=== PATIENT | male | born 1945 | race Caucasian/White ===

== ENCOUNTER 2017-06-10 14:00 | Outpatient (RCR) | payer MEDICARE, OTHER, SELFPAY | END 2017-06-23 11:26 | LOC: PUL 14:00 | PROVIDERS: Family Provider Physician Assistant Medical; PCP Physician Assistant Medical; Visit Provider Internal Medicine Critical Care Medicine | DX: J44.9 Chronic obstructive pulmonary disease, unspecified (principal) | CPT/HCPCS: G0424 ==

== ENCOUNTER → 2018-09-30 14:32 | Outpatient (CLI) | payer MEDICARE, OTHER, SELFPAY ==
--- NOTE | 2018-10-07 16:28 | PM.PFT.1 ---
Pulmonary Function Test Referral & Results Date Patient Seen: 09/30/18 Requesting provider: Estefania Dobbins Results: The spirometry demonstrates an FVC of 2.80 L which is 71% of predicted. The FEV1 was measured at 1.61 L which is 57% of predicted. The FEV1/FVC ratio was 58 which is 78% of predicted. Following the administration of bronchodilator there was no appreciable change. Lung volumes show an SVC of 2.73 L which is 65% of predicted. The diffusing capacity was measured at 18.72 which is 63% of predicted. The maximum voluntary ventilation was reduced Interpretation: This study demonstrates moderate obstructive lung disease without evidence of benefit following bronchodilator There is also [id number] restrictive lung disease present There is also reduction in diffusing capacity suggesting disease at the capillary alveolar level Compared to PFTs performed in January 2017, current study shows improvement in FEV1 and lung volumes overall
== END ==
PROVIDERS: PCP Physician Assistant Medical; Visit Provider Internal Medicine
DX: R06.02 Shortness of breath (principal)
CPT/HCPCS: 94060; 94726; 94729

== ENCOUNTER → 2020-05-30 12:21 | Outpatient (CLI) | payer MEDICARE, OTHER, SELFPAY ==
[2020-05-30 13:12] LABS: COVID19 -Nasal RAPID Negative (Negative)
== END ==
PROVIDERS: PCP Physician Assistant Medical; Referring Provider Internal Medicine; Visit Provider Internal Medicine
DX: Z20.822 Contact with and (suspected) exposure to COVID-19 (principal)
CPT/HCPCS: 87635; C9803

== ENCOUNTER → 2020-05-31 11:05 | Outpatient (CLI) | payer MEDICARE, OTHER, SELFPAY ==
--- NOTE | 2020-06-05 11:07 | PM.PFT.1 ---
Pulmonary Function Test Referral & Results Date Patient Seen: 05/31/20 Requesting provider: Yenny Fortune Results: The spirometry demonstrates an FVC of 2.35 L which is 61% of predicted. The FEV1 was measured at 1.33 L which is 40% of predicted. The FEV1/FVC ratio was 57 which is 78% of predicted. Following the administration of bronchodilator there was no appreciable change. Lung volumes show an SVC of 2.55 L which is 61% of predicted. The diffusing capacity was measured at 17.79 which is 60% of predicted. No hemoglobin value was provided, so no correction for potential anemia could be made, if appropriate. The maximum voluntary ventilation was reduced Interpretation: This study demonstrates moderately severe obstructive lung disease based on reduction FEV1 although FEV1/FVC ratio was relatively preserved. While there is no benefit following bronchodilator of note, shape a flow volume loop also is consistent with obstructive lung disease There is a mild reduction in lung volumes well based on reduction SVC There is a significant reduction in diffusing capacity suggesting significant disease at the capillary alveolar level Compared to PFTs performed in September 2018, current study shows a slight decline in FEV1 otherwise is essentially unchanged
== END ==
PROVIDERS: PCP Physician Assistant Medical; Referring Provider Physician Assistant Medical; Visit Provider Physician Assistant Medical
DX: J44.9 Chronic obstructive pulmonary disease, unspecified (principal)
CPT/HCPCS: 94060; 94726; 94729

== ENCOUNTER 2020-08-05 12:56 | Outpatient (RCR) | payer MEDICARE, OTHER, SELFPAY ==
--- NOTE | 2020-08-05 16:37 | ST.OPIE ---
Visit Care Team Role Provider Type Yenny Fortune PA-C Family Provider Non-Staff Primary Care Provider Specialty: Medical Address: [address] [place] [address] [address], [place], [address] Email: Willie Romano MD Attending Provider Physician Referring Provider Specialty: Ear, Nose, Throat Address: [address] [place] [address] [address], [place], [address] Email: [email or web address] Speech-Language Pathology Initial Evaluation [employer] Voice Resonance Evaluation Start: 08/05/20 13:34 Freq: Status: Active Protocol: Document 08/05/20 13:34 RUY (Rec: 08/05/20 14:03 RUY [email or web address]) Voice and Resonance Assessment Session Time Visit Start Time 13:30 Visit Stop Time 14:30 Total Visit Minutes 60 Visit Information Visit Number Initial Evaluation Plan of Care Dates 08/05/20 - 11/05/20 Insurance Information Medicare Next Note Type Next Note Type Treatment Note Referral Referring Physician Dr. Willie Romano Reason for Referral Hoarse voice Setting Setting Outpatient Care Patient History General Information Pt is a 75-yr-old male whose voice has been progressively hoarse over the last 5 yrs. He complains that his voice quality worsens over duration of speech and that speaking fatigues him quickly. Consumption of cold foods and liquids soothes his throat. The pt has been followed by Dr Jose Carlos Romano, ENT, who saw the pt for basal cell biopsy at last visit and indicated plan for laryngoscopy of voice at next ENT visit. In the meantime, Dr Jose Carlos Romano referred the pt to voice therapy, for which the pt presents today. Medical hx is significant for GERD, Diabetes, hypertention, sleep apnea, COPD requiring supplemental oxygen (3-4 liters, 20-24 hrs/day), basal cell carcinoma on the right ear, and colitis. 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 The pt uses 3 different inhalers: 2 puffs of one in morning; 2 of another in afternoon; and rescue inhaler as needed. He stopped using nebulizer ~3 yrs ago because it worsened the hoarseness of his voice. The pt is followed by [facility] but could not recall the name of his doctor. Hearing Hearing Level Impaired Vision Vision Status Not Impaired Augustine Langauge Language(s) Spoken in the Home Spanish Occupational Status Occupation Status Retired; worked frequently around environmental toxins. Previous Therapy Previous Speech-Language Therapy No Oral Motor Assessment Source: [employer] ([employer]). Oral-Motor Eval Completed No Subjective Subjective The pt arrived on time accompanied by his . The couple provided case history supplemental to medical records. - Laryngeal Performance S/Z Ratio S/Z Ratio 1.0518 WNL Functional for Speech Yes Reduced Laryngeal Function Relative to No Respiration Voice Handicap Index Function Subtotal 23 (Severe) Physical Subtotal 30 (Severe) Emotional Subtotal 17 (Mod-Severe) Total Score 70 Severity Severe (61-120) CAPE-V Overall Severity 77% Severe Roughness 91% Severe Breathiness WNL Strain 70% Severe Pitch 37% Moderate Loudness 22% Mildly reduced Normal Resonance? Yes Additional Features Diplophonia,Glottal Reynoso,Pitch Instability Maximum Phonation Time MPT Norms: Women (15-25) Men (25-35) Loudness (50-60 dB); Speaking Rate: Oral Reading of Sentences (190 Words Per Minute); Oral Reading of Paragraphs (160-170 WPM); Speaking Rate in Conversation (150-250 WPM) Maximum Phonation Time 6.8 sec Maximum Phonation Time Reduced,Unstable Tone,Unstable Pitch,Unstable Loudness Maximum Phonation Time Comments Decreased vocal quality with sustained phonation Jitter/Shimmer Norms: Jitter (Less than or equal to 1.040% - Frequency) Norms: Shimmer (Less than or equal to 3.810% - Amplitude) Jitter 9.57% Severely Abnormal Shimmer 26.86% Severely Abnormal Pitch [place]lake Pitch [place] Pitch Breaks,Reduced Range, Tension,Cessation of Voicing Pitch [place] Comments Unable to measure d/t diplophonia and roughness Breath Support Breath Support At Rest Thoracic,Clavicular,Mixed Breath Support Sustained Phonation Thoracic,Clavicular,Mixed Breath Support Conversation Thoracic,Clavicular,Mixed Speaks on Room Air No Therapeutic Techniques Therapy Tactics Breath Support,Postural Adjustment,Increase Loudness Findings Findings Severe Impairment Voice/Resonance Assessment Assessment The pt presents with severe dysphonia likely secondary to COPD, years of smoking, and frequent coughing d/t pulmonary issues. Voice quality is severely rough in nature with moderate-severe strain and mildly reduced loudness. Diplophonia is frequently perceived, both in spontaneous conversation and in structured tasks. [employer] was unable to objectively measure pitch and loudness levels d/t diplophonia and vocal roughness. Given the pt's history of cancer, smoking and COPD, in addition to severity of dysphonia symptoms, videostroboscopy is highly recommended for more thorough evaluation of VF health prior to initiation of voice treatment in order to guide POC. The pt was in agreement with this recommendation. Referral will be made and a copy of this report will be provided to [facility]. Prognosis Rehabilitation Potential Fair - Recommendations Treatment Recommended Yes Treatment Frequency/Duration Likely 1x/wk for up to 12 wks, pending ENT findings Therapy Recommendations Pending videostroboscopy findings Short Term Goals 1. The pt will participate in videostroboscopy evaluation with ENT to guide POC. Additional goals to be determined pending findings. Retail Sales Manager Goals 1. The pt will produce voicing with adequate quality and endurance to communicate effectively within his functional environment. Patient/Caregiver Education Patient/Family Education Described results of evaluation,Patient Understanding
--- NOTE | 2020-12-25 14:18 | ST.OPDS ---
Visit Care Team Role Provider Type Yenny Fortune PA-C Family Provider Non-Staff Primary Care Provider Address: [address] [place] [address] [address], [place], [address] Willie Romano MD Attending Provider Physician Referring Provider Address: [address] [place] [address] [address], [place], [address] HEAD PAPER TESTER Treatment Note HEAD PAPER TESTER Treatment Note Start: 08/05/20 13:34 Freq: Status: Active Protocol: Document 12/25/20 14:15 RUY (Rec: 12/25/20 14:17 RUY [id number]) Speech Pathology Treatment Note Visit Information Plan of Care Dates 08/05/20 - 11/05/20 Insurance Information Medicare Setting Treatment Setting Outpatient Care Visit Type Note Type Discharge Summary General Information General Information Pt is a 75-yr-old male whose voice has been progressively hoarse over the last 5 yrs. He complains that his voice quality worsens over duration of speech and that speaking fatigues him quickly. Consumption of cold foods and liquids soothes his throat. The pt has been followed by Dr Jose Carlos Romano, ENT, who saw the pt for basal cell biopsy at last visit and indicated plan for laryngoscopy of voice at next ENT visit. In the meantime, Dr Jose Carlos Romano referred the pt to voice therapy, for which the pt presents today. Medical hx is significant for GERD, Diabetes, hypertention, sleep apnea, COPD requiring supplemental oxygen (3-4 liters, 20-24 hrs/day), basal cell carcinoma on the right ear, and colitis. 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 The pt uses 3 different inhalers: 2 puffs of one in morning; 2 of another in afternoon; and rescue inhaler as needed. He stopped using nebulizer ~3 yrs ago because it worsened the hoarseness of his voice. The pt is followed by [facility] but could not recall the name of his doctor. Subjective Observations/Patient Presentation The pt was last seen for initial evaluation in July 2020, at which time videostroboscopy was recommended prior to initiation of voice therapy. The pt has not scheduled further appts and is now outside of POC dates. He will be discharged from skilled intervention at this time. New MD orders are required to resume therapy. Chief Complaint(s) Voice
== END 2021-03-11 09:42 ==
LOC: SP 12:56
PROVIDERS: Family Provider Physician Assistant Medical; PCP Physician Assistant Medical; Referring Provider Otolaryngology; Visit Provider Otolaryngology
DX: R49.0 Dysphonia (principal)
CPT/HCPCS: 92520; 92521

== ENCOUNTER → 2022-11-27 16:23 | Outpatient (CLI) | payer MEDICARE, OTHER, SELFPAY ==
[2022-11-27 18:49] LABS: Add Manual Diff / Slide Review NO; Basophils Absolute Auto 0 /uL (0-100); Basophils Percent Auto 0.4 % (0-2); Eosinophils Absolute Auto 200 /uL (0-450); Eosinophils Percent Auto 2.9 % (2-4); Hematocrit 35.9 % (41-53); Hemoglobin 12.5 g/dL (13.5-17.5); Lymphocytes Absolute Auto 1200 /uL (1100-4500); Lymphocytes Percent Auto 15.9 % (25-40); Mean Corpuscular HGB Conc 34.7 % (30-36); Mean Corpuscular Hemoglobin 31.8 PG (26-34); Mean Corpuscular Volume 91.4 fL (80-100); Monocytes Absolute Auto 700 /uL (0-900); Neutrophils Absolute Auto 5600 /uL (1500-7000); Neutrophils Percent Auto 71.8 % (50-75); Platelet Count 271 X10^3/uL (150-400); Red Blood Cell Count 3.93 X10^6/uL (4.5-5.9); Red Cell Distribution Width 12.9 % (11.6-14.8); White Blood Cell Count 7.8 X10^3/uL (4.5-11.0)
== END ==
PROVIDERS: Family Provider Physician Assistant Medical; PCP Physician Assistant Medical; Referring Provider Internal Medicine; Visit Provider Internal Medicine
DX: J45.50 Severe persistent asthma, uncomplicated (principal); J43.2 Centrilobular emphysema; J96.11 Chronic respiratory failure with hypoxia; J30.9 Allergic rhinitis, unspecified
CPT/HCPCS: 36415; 85025; 99215

== ENCOUNTER → 2023-11-19 12:27 | Outpatient (CLI) | payer MEDICARE, OTHER, SELFPAY ==
[2023-11-19 15:10] LABS: Add Manual Diff / Slide Review NO; Basophils Absolute Auto 0 /uL (0-100); Basophils Percent Auto 0.3 % (0-2); Eosinophils Absolute Auto 200 /uL (0-450); Eosinophils Percent Auto 2.4 % (2-4); Hematocrit 40.6 % (41-53); Hemoglobin 13.6 g/dL (13.5-17.5); Lymphocytes Absolute Auto 1000 /uL (1100-4500); Mean Corpuscular HGB Conc 33.6 % (30-36); Mean Corpuscular Hemoglobin 30.4 PG (26-34); Mean Corpuscular Volume 90.5 fL (80-100); Monocytes Absolute Auto 600 /uL (0-900); Monocytes Percent Auto 7.6 % (3-14); Neutrophils Absolute Auto 5700 /uL (1500-7000); Neutrophils Percent Auto 75.7 % (50-75); Platelet Count 222 X10^3/uL (150-400); Red Blood Cell Count 4.49 X10^6/uL (4.5-5.9); Red Cell Distribution Width 12.9 % (11.6-14.8); White Blood Cell Count 7.5 X10^3/uL (4.5-11.0)
[2023-11-23 09:36] LABS: Immunoglobulin E 146 IU/mL (6-495)
[2023-11-24 20:11] LABS: Aspergillus fumigatus IgE 0.72 kU/L (Class II)
== END ==
PROVIDERS: Family Provider Physician Assistant Medical; PCP Physician Assistant Medical; Referring Provider Internal Medicine; Visit Provider Internal Medicine
DX: J30.9 Allergic rhinitis, unspecified (principal); J96.11 Chronic respiratory failure with hypoxia; J43.2 Centrilobular emphysema; J45.50 Severe persistent asthma, uncomplicated
CPT/HCPCS: 36415; 82785; 85025; 86003

== ENCOUNTER → 2023-11-30 10:56 | Outpatient (CLI) | payer MEDICARE, OTHER, SELFPAY | LOC: RESP 10:57 | PROVIDERS: Family Provider Physician Assistant Medical; PCP Physician Assistant Medical; Referring Provider Internal Medicine; Visit Provider Internal Medicine | DX: J44.9 Chronic obstructive pulmonary disease, unspecified (principal); Z87.891 Personal history of nicotine dependence; R94.2 Abnormal results of pulmonary function studies; J45.50 Severe persistent asthma, uncomplicated; J43.2 Centrilobular emphysema; J96.11 Chronic respiratory failure with hypoxia | CPT/HCPCS: 94060; 94726; 94729 ==

== ENCOUNTER → 2023-12-01 15:54 | Outpatient (CLI) | payer MEDICARE, OTHER, SELFPAY ==
[2023-12-01 16:43] LABS: Estimated Glomerular Filt Rate > 60 mL/min (>60)
== END ==
PROVIDERS: Family Provider Physician Assistant Medical; PCP Physician Assistant Medical; Referring Provider Surgery; Visit Provider Surgery
DX: R19.8 Other specified symptoms and signs involving the digestive system and abdomen (principal); R19.7 Diarrhea, unspecified
CPT/HCPCS: 36415; 82565; 99213

== ENCOUNTER → 2023-12-02 10:08 | Outpatient (CLI) | payer MEDICARE, OTHER, SELFPAY ==
--- NOTE | 2023-12-02 10:10 | DI.CT.S_ITS ---
PROCEDURE: CT ABDOMEN PELVIS W CON INDICATIONS: Abdominal pain TECHNIQUE: After the administration of intravenous contrast, axial sections acquired from the lung bases to the pubic symphysis. Coronal and sagittal reformats were performed. For radiation dose reduction, the following was used: automated exposure control, adjustment of mA and/or kV according to patient size. COMPARISON: None. FINDINGS: Image quality: Diagnostic. Lower Chest: No significant findings. Apparent right-sided lower posterior mediastinal lipoma measuring up to 5.6 cm, in the setting of a moderate-sized hiatal hernia extending into the same area of the lower chest. ABDOMEN: Liver: No solid mass. Gallbladder: No radiopaque gallstones or wall thickening. Biliary ducts: No biliary dilation. Pancreas: No ductal dilation. Spleen: Size is within normal limits. Adrenal Glands: No adrenal nodules. Kidneys and Ureters: No hydronephrosis. No solid mass. No complex renal cystic lesion which requires follow up. Dominant 6 cm upper right renal cortical cyst. No solid component. Stomach and Bowel: Normal colonic caliber, without significant wall thickening. Peritoneum: No abnormal intraperitoneal fluid. No free air. Ventral Wall: No significant ventral hernia. Abdominal Nodes: No retroperitoneal or mesenteric adenopathy by size criteria. Vessels: Aorta and inferior vena cava are normal in size. PELVIS: Pelvic Organs: Unremarkable. Bladder: No bladder wall thickening, accounting for underdistention. Pelvic Nodes: No enlarged lymph nodes. Miscellaneous: No inguinal hernias are seen. Bones: No aggressive osseous abnormality. IMPRESSION: A definite source of abdominal pain is not seen. 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 Moderate-sized hiatal hernia extends into the same area but no obstructive influence is found. Mild sigmoid diverticulosis without acute diverticulitis. Dictated by: Tommy Dangelo M.D. on 12/02/2023 at 12:57 Approved by: Tommy Dangelo M.D. on 12/02/2023 at 13:02
== END ==
PROVIDERS: Family Provider Physician Assistant Medical; PCP Physician Assistant Medical; Referring Provider Surgery; Visit Provider Surgery
DX: K92.1 Melena (principal); D17.5 Benign lipomatous neoplasm of intra-abdominal organs; K44.9 Diaphragmatic hernia without obstruction or gangrene; K57.30 Diverticulosis of large intestine without perforation or abscess without bleeding
CPT/HCPCS: 74177; Q9967

== ENCOUNTER 2024-02-10 13:12 | Day surgery (SDC) | payer MEDICARE, OTHER, SELFPAY ==
[2024-02-10 14:01] VITALS: BP 189/80; PULSE 74; RESP 18; TEMP 36.1; O2SAT 96
--- NOTE | 2024-02-10 14:22 | PM.HP.1 ---
History of Present Illness History of Present Illness Date Patient Seen: 02/10/24 Time Patient Seen: 14:23 Chief complaint: Screening Colonoscopy [facility] Medical History (Updated 02/10/24 @ 14:25 by Elena Poole MD) Ulcerative colitis Hx of basal cell carcinoma COPD (chronic obstructive pulmonary disease) Family History (Updated 12/01/23 @ 15:32 by Chi Ambrose RN) Mother Hypertension Cancer Sister Hypertension Cancer Heart disease Social History Smoking Status: Former smoker Meds Home Medications and Allergies Home Medications Medication Instructions Recorded Confirmed Type ascorbic acid (vitamin C) 1,000 mg 1 g PO Q6H 11/27/22 12/02/23 History capsule atorvastatin 20 mg tablet 20 mg PO DAILY 11/27/22 12/02/23 History cholecalciferol (vitamin D3) 25 25 mcg PO DAILY 11/27/22 12/02/23 History mcg (1,000 unit) capsule hydrochlorothiazide 12.5 mg capsule 12.5 mg PO DAILY 11/27/22 12/02/23 History losartan 100 mg tablet 100 mg PO DAILY 11/27/22 12/02/23 History mesalamine 400 mg capsule (with 400 mg PO TID 11/27/22 12/02/23 History delayed release tablets inside) metformin 500 mg tablet 500 mg PO DAILY 11/27/22 12/02/23 History multivitamin with minerals-folic tab PO 11/27/22 12/02/23 History acid 200 mcg chewable tablet (One-A-Day Men VitaCraves) ipratropium 0.5 mg-albuterol 3 mg 3 ml inhalation QID PRN 12/01/23 12/02/23 History (2.5 mg base)/3 mL nebulization soln omeprazole 20 mg tablet,delayed 20 mg PO BID 12/01/23 12/02/23 History release tamsulosin 0.4 mg capsule 0.4 mg PO DAILY 12/01/23 12/02/23 History azithromycin 500 mg tablet 500 mg PO 3XW #14 tabs 12/02/23 12/02/23 Rx fluticasone fur. 200 mcg-umeclid 1 inh inhalation DAILY #60 ea 12/02/23 12/02/23 Rx 62.5 mcg-vilant 25 mcg inhalat.powder (Trelegy Ellipta) sodium,potassium,mag sulfates 17.5 See Rx Instructions PO .COMPLEX 01/03/24 Rx gram-3.13 gram-1.6 gram oral soln #354 mL (Suprep Bowel Prep Kit) Allergies Allergy/AdvReac Type Severity Reaction Status Date / Time No Known Drug Allergies Allergy Unverified 12/02/23 13:25 Review of Systems Review of Systems ROS: Yes All systems reviewed with the patient and are negative except as otherwise documented Exam Narrative Exam Narrative: NORMAL abdomen, no abnormalities Const General: cooperative Assessment & Plan Assessment and plan (1) H/O adenomatous polyp of colon: Problem details: h/o polypectomies every time he had a colonoscopy x 3. Due for one today. Had a good bowel prep yesterday. Status: Acute Time-Based Coding :: [TOTAL MINUTES] spent with patient and on the chart (including review of chart, obtaining history, exam, reviewing outside data, placing orders, documenting exam and treatment plan, and counseling patient) on [DATE].
--- NOTE | 2024-02-10 14:25 | PM.OP.COLON ---
Operative Date/Time/Diagnoses Date of procedure: 02/10/24 Time of procedure: 14:26 Procedure Notes Procedure in detail: OPERATIVE / PROCEDURE NOTE Minesh Heck, 1945, 78,Male,CSN: [id number] 02/10/24 PREOPERATIVE DIAGNOSIS: H/O multiple colo polyps every time he had a colonoscopy x3, change in bowel habits. POSTOPERATIVE DIAGNOSIS: Same + Per the colonoscopy to the cecum: mild sigmoid diverticulosis noted + rectal ulcerative colitis, but NO polyps. PROCEDURE DONE: Colonoscopy to the cecum. ANESTHESIA: MAC per Anesthesia. COMPLICATIONS: None. SPECIMENS: None. ESTIMATED BLOOD LOSS: NONE. CONDITION: Stable to the PACU. OPERATIVE DESCRIPTION: After proper informed consent was signed by the patient knowing all the risks, benefits, and potential complications and possible alternatives of the procedure, the patient was appropriately identified. Minesh Heck underwent a bowel prep that was very efficient yesterday, and the colon was clean. After institution of sedation on his left lateral decubitus position, a rectal exam was performed. Normal rectal and anal tone was found. The Olympus colonoscope was placed into his anus and under direct visualization was advanced from the rectum to the rectosigmoid to the sigmoid to the left colon, splenic flexure, transverse colon, hepatic flexure, ascending colon, and all the way to the cecum. Circumferential visualization of the mucosa was possible. The appendix aperture was noted. The ileocecal valve was noted. No large tumors. No ulcers. in the rectum inflammatory bowel disease changes were noted, he is known to have ulcerative colitis, and minor bleeding was caused by the scope entrance. Small very few 2-3 diverticulae noted in the sigmoid colon. In the rectum, the scope was retroflexed, and Grade I internal hemorrhoids were noted. The scope was straightened back again. The colon was decompressed, and the scope was retracted out uneventfully. The patient tolerated the procedure well without any complications, was sent to the PACU in stable condition. RECOMMENDATIONS: Continue high-fiber diet - 30-40 gm/day with daily fiber supplementation. F/u colonoscopy in 3-5 years.
[2024-02-10 14:55] VITALS: BP 146/70; PULSE 80; RESP 16; TEMP 36.3; O2SAT 96
[2024-02-10 15:00] VITALS: BP 149/77; PULSE 73; RESP 19; O2SAT 97
[2024-02-10 15:05] VITALS: BP 151/76; PULSE 67; RESP 16; O2SAT 95
[2024-02-10 15:08] VITALS: BP 157/79; PULSE 63; RESP 16; O2SAT 96
== END 2024-02-10 15:25 | disposition home or self-care (01) ==
PROVIDERS: Family Provider Physician Assistant Medical; PCP Physician Assistant Medical; Referring Provider Surgery; Visit Provider Surgery
PROC: 0DJD8ZZ Inspection of Lower Intestinal Tract, Via Natural or Artificial Opening Endoscopic (ICD-10-PCS; CPT 45378; principal; 2024-02-10 14:30)
DX: Z12.11 Encounter for screening for malignant neoplasm of colon (principal); Z86.0100 Personal history of colon polyps, unspecified; K57.30 Diverticulosis of large intestine without perforation or abscess without bleeding; K51.90 Ulcerative colitis, unspecified, without complications; K64.0 First degree hemorrhoids
CPT/HCPCS: G0105; J2704